=== PATIENT | male | born 1945 | race Caucasian/White ===

== ENCOUNTER 2017-06-19 06:30 | Day surgery (SDC) | payer MEDICARE, BC ==
[2017-06-18 15:45] VITALS: BMI 22.2
--- NOTE | 2017-06-19 06:13 | HP ---
DATE OF ADMISSION: 06/19/2017 HISTORY OF PRESENT ILLNESS: This is a 71-year-old male, who comes for colonoscopy for colon cancer screening. The patient has no specific TI symptoms. Bowel movements are regular. No hematochezia or melena. ALLERGIES: None. SOCIAL HISTORY: The patient does not smoke, but drinks alcohol socially. MEDICAL ILLNESSES: 1. Hypertension. 2. Insomnia. 3. Irritable bowel syndrome. 4. Sleep apnea. . PHYSICAL EXAMINATION: VITAL SIGNS: Pulse is 70, blood pressure 130/70. HEENT: Conjunctivae are clear. CARDIOVASCULAR: First and second heart sounds are normal. LUNGS: Clear to auscultation. ABDOMEN: Soft to palpate. No organomegaly. No tenderness. No masses. EXTREMITIES: Reveal no edema. ADMITTING DIAGNOSIS: A 71-year-old male, who comes for colonoscopy for colon cancer screening. MTDD
[2017-06-19] MEDS ORDERED: Propofol 200 MG/20 ML VIAL ONE (08:41)
[2017-06-19] MEDS ORDERED: Lidocaine 1% PF 5 ML VIAL ONE (08:41)
--- NOTE | 2017-06-19 11:32 | OP ---
DATE OF PROCEDURE: 06/19/2017 SURGEON: Indy Nunn M.D. OPERATIVE PROCEDURE: Colonoscopy. PREOPERATIVE DIAGNOSIS: Colon cancer screening. POSTOPERATIVE DIAGNOSES: 1. Very redundant, tortuous colon. 2. Diffuse diverticular disease to the transverse colon. PROCEDURE IN DETAIL: The patient was placed on his left lateral position and was given sedation by Anesthesia Department. A rectal exam was done before the scope was advanced into the rectum. No le sions were felt on rectal exam. A [employer]ax video colonoscope was introduced into the rectum and advan ian all the way into the cecum. The prep was very good. The mucosa appeared normal throughout the colon with normal vascular pattern. The patient had a very tortuous and redundant colon. Abdominal compression was used to advance all the way into the cecum. The appendiceal opening, ileocecal terrie ve, and cecum, no pathology seen. The ascending colon, hepatic flexure, no pathology seen. The tra nsverse colon, splenic flexure, descending colon, and sigmoid colon showed scattered diverticulosis. Retroflexion of the scope in the rectum showed no hemorrhoids. DISCHARGE PLANNING: This is a 71-year-old male who came in for colonoscopy for colon [facility] er screening. The colonoscopy showed diffuse colonic diverticulosis of the sigmoid colon all the wa y the transverse colon. No other pathology seen. DISCHARGE RECOMMENDATIONS: 1. High-fiber diet. 2. Metamucil. 3. The patient was advised to call me if he develops abdominal pain, hematochezia or fever.
== END 2017-06-19 09:50 | disposition home or self-care (01) ==
LOC: SDC 06:30
PROVIDERS: ATTEND Internal Medicine Gastroenterology
PROC: 0DJD8ZZ Inspection of Lower Intestinal Tract, Via Natural or Artificial Opening Endoscopic (ICD-10-PCS; principal; 2017-06-19)
DX: Z12.11 Encounter for screening for malignant neoplasm of colon (principal); K57.30 Diverticulosis of large intestine without perforation or abscess without bleeding; I10 Essential (primary) hypertension; G47.00 Insomnia, unspecified; G47.30 Sleep apnea, unspecified; E78.5 Hyperlipidemia, unspecified; Z91.011 Allergy to milk products; Z79.899 Other long term (current) drug therapy; Z98.890 Other specified postprocedural states
CPT/HCPCS: J2001; J2704

== ENCOUNTER 2018-02-26 08:51 | Outpatient (CLI) | payer MEDICARE, BC | END 2018-02-26 08:52 | disposition home or self-care (01) | LOC: BICULT 08:51 | PROVIDERS: ATTEND Internal Medicine Nephrology | DX: N18.3 Chronic kidney disease, stage 3 (moderate) (principal); N28.1 Cyst of kidney, acquired | CPT/HCPCS: 76770 ==

== ENCOUNTER 2019-09-26 10:37 | Outpatient (CLI) | payer MEDICARE, BC ==
--- NOTE | 2019-09-26 13:18 | BD ---
DEXA BONE DENSITY STUDY: Date: 09/26/2019 HISTORY: Age-related osteoporosis. FINDINGS: Lumbar Spine: BMD (g/cm2) L1 0.922 T-Score: -1.4 L2 1.025 T-Score: -0.6 L3 1.073 T-Score: -0.3 L4 1.071 T-Score: -0.2 Total 1.028 T-Score: -0.6 Left Femoral Neck: 0.722 T-Score: -1.5 Total Femur: 0.869 T-Score: -1.1 IMPRESSION: Osteopenia of the left femoral neck. Normal bone mineral density of the lumbar spine. The 10 year fracture risk for major osteoporotic fracture is 19% and for a hip fracture is 8.6%. Thes e fracture probabilities are calculated for an untreated patient. POS: [facility]
== END 2019-09-26 10:38 | disposition home or self-care (01) ==
LOC: BICMAMMO 10:37
PROVIDERS: ATTEND Internal Medicine Rheumatology
DX: M81.0 Age-related osteoporosis without current pathological fracture (principal); M85.852 Other specified disorders of bone density and structure, left thigh
CPT/HCPCS: 77080

== ENCOUNTER 2020-12-09 15:18 | Outpatient (CLI) | payer MEDICARE, BC | END 2020-12-09 15:19 | disposition home or self-care (01) | LOC: SCSULT 15:18 | PROVIDERS: ATTEND Internal Medicine Nephrology | DX: R60.0 Localized edema (principal); L40.50 Arthropathic psoriasis, unspecified; M05.79 Rheumatoid arthritis with rheumatoid factor of multiple sites without organ or systems involvement; E29.1 Testicular hypofunction ==

== ENCOUNTER 2021-09-28 13:23 | Outpatient (CLI) | payer MEDICARE, BC | END 2021-09-28 13:24 | disposition home or self-care (01) | LOC: BICMAMMO 13:23 | PROVIDERS: ATTEND Internal Medicine Rheumatology | DX: M81.0 Age-related osteoporosis without current pathological fracture (principal); M85.851 Other specified disorders of bone density and structure, right thigh; M85.852 Other specified disorders of bone density and structure, left thigh | CPT/HCPCS: 77080 ==

== ENCOUNTER 2021-10-02 08:57 | Observation (INO) | payer MEDICARE, BC ==
[2021-10-02 09:46] LABS: #Basophils 0.1 thou/uL (0.0-0.2); #Eosinphils 0.1 thou/uL (0.0-0.7); #Lymphocytes 1.5 thou/uL (1.20-3.40); #Monocytes 1.1 thou/uL (0.11-0.59); #Neutrophils 5.5 thou/uL (1.40-6.50); %Basophils 0.7 % (0.0-1.0); %Eosinophils 0.8 % (0.0-10.0); %Lymphocytes 18.1 % (21.0-51.0); %Monocytes 13.9 % (0.0-10.0); %Neutrophils 66.5 % (42.0-75.0); Hemoglobin 12.8 g/dL (14.0-18.0); Mean Corpuscular HGB CONC 34.1 g/dL (32.0-36.0); Mean Corpuscular Hemoglobin 37.7 pg (27.0-31.0); Mean Platelet Volume 6.3 fL (7.4-10.4); Platelet Count 230 thou/uL (130-400); RBC Distribution Width 13.4 % (11.5-14.5); Red Blood Cell (RBC) Count 3.41 mill/uL (4.70-6.10); White Blood Cell (WBC) Count 8.2 thou/uL (4.8-10.8)
[2021-10-02 09:56] LABS: INR-International Normal Ratio 1.1
[2021-10-02 09:57] LABS: PTT 41.6 sec (22.9-36.1)
[2021-10-02 10:00] LABS: ALT (SGPT) 20 U/L (8-55); AST (SGOT) 29 U/L (5-34); Albumin 3.8 g/dL (3.4-4.8); Alkaline Phosphatase 36 U/L (40-110); Anion Gap 10 mmol/L (10-20); BUN (Urea Nitrogen) 18 mg/dL (8.4-25.7); Bilirubin, Total 0.6 mg/dL (0.2-1.2); Calc. Creatinine Clearance 0 mL/min (70-130); Calcium 9.4 mg/dL (7.8-10.44); Carbon Dioxide 27 mmol/L (23-31); Chloride 102 mmol/L (98-107); Glucose 99 mg/dL (83-110); Potassium 4.5 mmol/L (3.5-5.1); Protein, Total 6.8 g/dL (5.8-8.1); Sodium 134 mmol/L (136-145)
[2021-10-02 10:16] LABS: MDiff Complete? YES; Macrocytosis SLIGHT = 6-15 cells (100X) (0-5/hpf); Platelet Morphology Comment Appears Adequate
[2021-10-02] MEDS ORDERED: hydrALAZINE 20 MG/ML VIAL SLOW IVP PRN (10:59)
[2021-10-02] MEDS ORDERED: Aspirin Chewable 81 MG TAB ONE (11:18)
[2021-10-02] MEDS ORDERED: Acetaminophen 325 MG TAB ONE (11:18)
[2021-10-02 13:14] LABS: Troponin I 0.044 ng/mL (< 0.028)
[2021-10-02 13:53] VITALS: BMI 21.3
[2021-10-02 14:22] LABS: SARS-CoV-2 NAA Rapid Test Not Detected (NotDetected)
[2021-10-02 16:53] LABS: Troponin I 0.043 ng/mL (< 0.028)
[2021-10-02] MEDS ORDERED: CERTOLIZUMAB PEGOL 400 MG SC SCH (18:15)
[2021-10-02] MEDS ORDERED: Non-Formulary Item 1 EACH (Ibandronate Sodium [Ibandronate Sodium] 150 MG Tablet) PO SCH (18:15)
[2021-10-02] MEDS: Folic Acid 1 MG TAB PO SCH (20:32)
[2021-10-02] MEDS: Acetaminophen 325 MG TAB PO SCH (20:32)
[2021-10-02] MEDS ORDERED: traZODone HCl 50 MG TAB PO SCH (21:00)
[2021-10-02] MEDS ORDERED: Atorvastatin Calcium 40 MG TAB PO SCH (21:00)
[2021-10-03 05:43] LABS: #Basophils 0.1 thou/uL (0.0-0.2); #Eosinphils 0.2 thou/uL (0.0-0.7); #Lymphocytes 3.1 thou/uL (1.20-3.40); #Monocytes 1.4 thou/uL (0.11-0.59); %Basophils 0.9 % (0.0-1.0); %Eosinophils 1.6 % (0.0-10.0); %Monocytes 14.1 % (0.0-10.0); %Neutrophils 51.4 % (42.0-75.0); Hemoglobin 12.2 g/dL (14.0-18.0); Mean Corpuscular HGB CONC 33.5 g/dL (32.0-36.0); Mean Corpuscular Hemoglobin 36.9 pg (27.0-31.0); Mean Platelet Volume 6.5 fL (7.4-10.4); Platelet Count 231 thou/uL (130-400); RBC Distribution Width 13.4 % (11.5-14.5); White Blood Cell (WBC) Count 9.8 thou/uL (4.8-10.8)
[2021-10-03 06:06] LABS: Anion Gap 22 mmol/L (10-20); BUN (Urea Nitrogen) 23 mg/dL (8.4-25.7); Calc. Creatinine Clearance 44 mL/min (70-130); Calcium 8.7 mg/dL (7.8-10.44); Carbon Dioxide 13 mmol/L (23-31); Chloride 101 mmol/L (98-107); Cholesterol 113 mg/dl (< 200 Desired); Glucose 93 mg/dL (83-110); HDL Cholesterol 28 mg/dL (>60 Neg Risk); LDL Cholesterol, Calculated 65 mg/dL; Potassium 4.3 mmol/L (3.5-5.1); Sodium 132 mmol/L (136-145); Triglycerides 100 mg/dL (Less than 150)
[2021-10-03] MEDS ORDERED: Ferrous Sulfate 325 MG TAB PO SCH (08:00)
[2021-10-03] MEDS ORDERED: predniSONE 1 MG TAB PO SCH (08:00)
[2021-10-03] MEDS: Folic Acid 1 MG TAB PO SCH (08:29)
[2021-10-03] MEDS: Acetaminophen 325 MG TAB PO SCH (08:29)
[2021-10-03] MEDS ORDERED: BOSWELLIA SERRA PO SCH (09:00)
[2021-10-03] MEDS ORDERED: Calcium Carbonate 600 MG + Vit D TAB PO SCH (09:00)
[2021-10-03] MEDS ORDERED: GLUCOSAMINE PO SCH (09:00)
[2021-10-03] MEDS ORDERED: Losartan 25 MG TAB PO SCH (09:00)
[2021-10-03] MEDS ORDERED: D3 PO SCH (09:00)
[2021-10-03] MEDS ORDERED: Aspirin 81 mg Enteric Coated Tablet PO SCH (09:00)
[2021-10-03] MEDS ORDERED: Loratadine 10 MG TAB PO SCH (09:00)
[2021-10-03] MEDS ORDERED: [UNRECOGNIZED DRUG - OTHER] PO SCH (09:00)
[2021-10-03 11:33] VITALS: BP 102/55; TEMP 98.2
[2021-10-03] MEDS ORDERED: Mometasone Furoate 30 PUFF 220 MCG INH SCH (18:30)
[2021-10-05 12:57] LABS: CCP IgG Antibody 1.4 EliAU/mL (<7 Negative); EliA RAS New Method **** NEW METHOD ****; Rheumatoid Factor IgA Antibody 2.3 IU/mL (<14 Negative)
[2021-10-09] MEDS ORDERED: METHOTREXATE SODIUM 25 MG/ML FS SCH (09:00)
== END 2021-10-03 14:00 | disposition home or self-care (01) ==
LOC: ERS 08:57 → NEURO 11:08
PROVIDERS: ADMIT Hospitalist; ATTEND Hospitalist
DX: G45.9 Transient cerebral ischemic attack, unspecified (principal); M06.9 Rheumatoid arthritis, unspecified; L40.50 Arthropathic psoriasis, unspecified; I11.9 Hypertensive heart disease without heart failure; I08.3 Combined rheumatic disorders of mitral, aortic and tricuspid valves; Z79.82 Long term (current) use of aspirin; Z79.83 Long term (current) use of bisphosphonates; Z79.899 Other long term (current) drug therapy; Z91.011 Allergy to milk products; Z20.822 Contact with and (suspected) exposure to COVID-19; W06.XXXA Fall from bed, initial encounter
CPT/HCPCS: 70450; 70551; 80048; 80053; 80061; 82553; 82962; 83520; 84484 ×2; 85025 ×2; 85610; 85730; 86200; 93005; 93306; 93880; 97139 ×3; 97535; 99285; U0002; 36415; 36416; G0378; J7512

== ENCOUNTER 2022-08-06 19:00 | Outpatient (CLI) | payer MEDICARE, BC | END 2022-08-06 19:01 | disposition home or self-care (01) | LOC: SLEEPLAB 19:00 | PROVIDERS: ATTEND Psychiatry & Neurology Neurology | DX: G47.33 Obstructive sleep apnea (adult) (pediatric) (principal); G31.84 Mild cognitive impairment of uncertain or unknown etiology; R06.83 Snoring; G47.10 Hypersomnia, unspecified; G47.00 Insomnia, unspecified | CPT/HCPCS: 95810 ==

== ENCOUNTER 2022-11-13 05:57 | Inpatient (IN) | payer MEDICARE, BC ==
[2022-11-13 06:51] LABS: ALT (SGPT) 22 U/L (8-55); AST (SGOT) 38 U/L (5-34); Alkaline Phosphatase 35 U/L (40-110); Anion Gap 11 mmol/L (10-20); BUN (Urea Nitrogen) 20 mg/dL (8.4-25.7); Bilirubin, Total 0.8 mg/dL (0.2-1.2); Calc. Creatinine Clearance 0 mL/min (70-130); Calcium 9.1 mg/dL (7.8-10.44); Carbon Dioxide 22 mmol/L (23-31); Chloride 108 mmol/L (98-107); Estimated GFR 50; Globulin 2.6 g/dL (2.4-3.5); Glucose 89 mg/dL (83-110); Potassium 3.9 mmol/L (3.5-5.1); Protein, Total 6.6 g/dL (5.8-8.1); Sodium 137 mmol/L (136-145)
[2022-11-13 07:07] LABS: Hemoglobin 13.7 g/dL (14.0-18.0); Mean Corpuscular HGB CONC 32.8 g/dL (32.0-36.0); Mean Corpuscular Hemoglobin 35.6 pg (27.0-31.0); Mean Platelet Volume 7.6 fL (7.4-10.4); Platelet Count 153 10x3/uL (130-400); RBC Distribution Width 14.1 % (11.5-14.5); Red Blood Cell (RBC) Count 3.85 mill/uL (4.70-6.10); White Blood Cell (WBC) Count 6.8 10x3/uL (4.8-10.8)
[2022-11-13 07:14] LABS: CKMB 4.9 ng/mL (0-6.6)
[2022-11-13 07:22] LABS: #Basophils 0.1 thou/uL (0.0-0.2); #Eosinphils 0.3 thou/uL (0.0-0.7); #Lymphocytes 1.3 thou/uL (1.20-3.40); #Monocytes 0.8 thou/uL (0.11-0.59); #Neutrophils 4.3 thou/uL (1.40-6.50); %Basophils 0.7 % (0.0-1.0); %Eosinophils 4.4 % (0.0-10.0); %Lymphocytes 19.1 % (21.0-51.0); %Monocytes 12.3 % (0.0-10.0); %Neutrophils 63.5 % (42.0-75.0)
[2022-11-13 07:40] LABS: MDiff Complete? YES; Macrocytosis MODERATE=16-30 cells (100X) (0-5/hpf); Platelet Morphology Comment Appears Adequate; Polychromasia SLIGHT = 2-3 cells (100X) (0-2/hpf)
[2022-11-13 07:43] LABS: Prothrombin Time 13.5 sec (12.0-14.7)
[2022-11-13 07:44] LABS: PTT 33.9 sec (22.9-36.1)
[2022-11-13] MEDS ORDERED: hydrALAZINE 20 MG/ML VIAL ONE (07:47)
[2022-11-13] MEDS ORDERED: Non-Formulary Item 1 EACH (Iron [Iron] 18 MG Tablet) PO SCH (09:00)
[2022-11-13 09:14] LABS: SARS-CoV-2 NAA Rapid Test Not Detected (NotDetected)
[2022-11-13 09:37] VITALS: BMI 22.8
[2022-11-13] MEDS ORDERED: Acetaminophen 325 MG TAB PO PRN (09:42)
[2022-11-13] MEDS ORDERED: Bisacodyl 5 MG TAB PO PRN (09:42)
[2022-11-13] MEDS: Losartan 25 MG TAB PO SCH (10:08)
[2022-11-13] MEDS: Calcium Carbonate 600 MG + Vit D TAB PO SCH (10:08)
[2022-11-13] MEDS: hydrALAZINE 20 MG/ML VIAL SLOW IVP PRN ×2 (10:08→18:09)
[2022-11-13] MEDS: Folic Acid 1 MG TAB PO SCH ×2 (10:09→20:52)
[2022-11-13] MEDS: Fluticasone Propionate Nasal Spray 16 gm Bottle NASAL SCH (10:15)
[2022-11-13] MEDS ORDERED: niCARdipine 25 MG in Sodium Chloride 0.9% 250 ML 250 ML IVPB PRN (17:45)
[2022-11-13] MEDS ORDERED: Ondansetron PF 4 MG/2 ML Vial IVP PRN (19:22)
[2022-11-13] MEDS ORDERED: Morphine 2 MG/ML VIAL SLOW IVP PRN (19:22)
[2022-11-13] MEDS: Famotidine/PF 20 mg/2ml Vial SLOW IVP SCH (20:52)
[2022-11-14] MEDS: Acetaminophen/Codeine 30-300mg Tablet PO PRN ×2 (00:09→04:10)
[2022-11-14 05:24] LABS: Hemoglobin 14.4 g/dL (14.0-18.0); Mean Corpuscular HGB CONC 32.2 g/dL (32.0-36.0); Mean Corpuscular Hemoglobin 35.2 pg (27.0-31.0); Mean Platelet Volume 7.2 fL (7.4-10.4); Platelet Count 176 10x3/uL (130-400); RBC Distribution Width 14.2 % (11.5-14.5); White Blood Cell (WBC) Count 8.9 10x3/uL (4.8-10.8)
[2022-11-14 05:29] LABS: Anion Gap 15 mmol/L (10-20); BUN (Urea Nitrogen) 19 mg/dL (8.4-25.7); Calc. Creatinine Clearance 42 mL/min (70-130); Calcium 8.9 mg/dL (7.8-10.44); Carbon Dioxide 19 mmol/L (23-31); Chloride 105 mmol/L (98-107); Estimated GFR 49; Glucose 73 mg/dL (83-110); Potassium 4.7 mmol/L (3.5-5.1); Sodium 134 mmol/L (136-145)
[2022-11-14 06:13] LABS: #Eosinphils 0.1 thou/uL (0.0-0.7); #Lymphocytes 1.5 thou/uL (1.20-3.40); #Monocytes 1.3 thou/uL (0.11-0.59); %Eosinophils 1.4 % (0.0-10.0); %Lymphocytes 17.1 % (21.0-51.0); %Monocytes 14.2 % (0.0-10.0); %Neutrophils 67.3 % (42.0-75.0); MDiff Complete? YES; Macrocytosis SLIGHT = 6-15 cells (100X) (0-5/hpf)
[2022-11-14] MEDS: Losartan 25 MG TAB PO SCH (08:33)
[2022-11-14] MEDS: Famotidine/PF 20 mg/2ml Vial SLOW IVP SCH (08:33)
[2022-11-14] MEDS: Folic Acid 1 MG TAB PO SCH (09:34)
[2022-11-14] MEDS: Calcium Carbonate 600 MG + Vit D TAB PO SCH (09:34)
[2022-11-14] MEDS: Fluticasone Propionate Nasal Spray 16 gm Bottle NASAL SCH (09:35)
[2022-11-14 13:14] VITALS: BP 124/72; TEMP 98.2
== END 2022-11-14 13:00 | disposition home or self-care (01) | DRG 66 ==
LOC: ERS 05:57 → CCU 08:06
PROVIDERS: ADMIT Surgery; ATTEND Surgery
DX: I61.8 Other nontraumatic intracerebral hemorrhage (principal); M06.9 Rheumatoid arthritis, unspecified; L40.50 Arthropathic psoriasis, unspecified; I12.9 Hypertensive chronic kidney disease with stage 1 through stage 4 chronic kidney disease, or unspecified chronic kidney disease; R47.1 Dysarthria and anarthria; N18.30 Chronic kidney disease, stage 3 unspecified; Z86.73 Personal history of transient ischemic attack (TIA), and cerebral infarction without residual deficits; Z82.49 Family history of ischemic heart disease and other diseases of the circulatory system; Z98.890 Other specified postprocedural states; Z79.899 Other long term (current) drug therapy; Z79.82 Long term (current) use of aspirin; Z91.018 Allergy to other foods; Z90.89 Acquired absence of other organs; Z20.822 Contact with and (suspected) exposure to COVID-19
CPT/HCPCS: 36415; 70450; 80048; 80053; 82553; 84484; 85025; 85610; 85730; 93005; 96374; 99292; J0360; J2405; S0028; U0002

== ENCOUNTER 2022-11-15 02:48 | Emergency (ER) | payer MEDICARE, BC ==
[2022-11-15 03:56] LABS: Hemoglobin 13.5 g/dL (14.0-18.0); Mean Corpuscular Hemoglobin 36.7 pg (27.0-31.0); Mean Platelet Volume 7.4 fL (7.4-10.4); Platelet Count 160 10x3/uL (130-400); Red Blood Cell (RBC) Count 3.68 mill/uL (4.70-6.10)
[2022-11-15 04:00] LABS: ALT (SGPT) 20 U/L (8-55); AST (SGOT) 34 U/L (5-34); Albumin 3.5 g/dL (3.4-4.8); Alkaline Phosphatase 36 U/L (40-110); Anion Gap 10 mmol/L (10-20); BUN (Urea Nitrogen) 26 mg/dL (8.4-25.7); Bilirubin, Total 1.2 mg/dL (0.2-1.2); Calc. Creatinine Clearance 0 mL/min (70-130); Calcium 8.8 mg/dL (7.8-10.44); Carbon Dioxide 26 mmol/L (23-31); Chloride 103 mmol/L (98-107); Estimated GFR 41; Globulin 2.8 g/dL (2.4-3.5); Glucose 99 mg/dL (83-110); Potassium 4.1 mmol/L (3.5-5.1); Protein, Total 6.3 g/dL (5.8-8.1); Sodium 135 mmol/L (136-145)
[2022-11-15 04:01] LABS: INR-International Normal Ratio 1.1; PTT 34.9 sec (22.9-36.1); Prothrombin Time 14.2 sec (12.0-14.7)
[2022-11-15 04:18] LABS: MDiff Complete? YES
[2022-11-15 04:19] LABS: Band 1 % (5-11); Eosinophils 1 % (0-10); Lymphocytes 20 % (21-51); Monocytes 12 % (0-10); Neutrophil 66 % (42-75); Platelet Morphology Comment Appears Adequate; Polychromasia SLIGHT = 2-3 cells (100X) (0-2/hpf); Stomatocytes SLIGHT = 2-5 cells (100X) (0-1/hpf)
== END 2022-11-15 11:56 ==
LOC: ERS 02:48
DX: R53.1 Weakness (principal)
CPT/HCPCS: 36415; 36416; 70450; 80053; 85025; 85610; 85730

== ENCOUNTER 2022-12-06 11:58 | Outpatient (CLI) | payer MEDICARE, BC | END 2022-12-06 11:59 | disposition home or self-care (01) | LOC: BICCT 11:58 | PROVIDERS: ATTEND Surgery | DX: I62.9 Nontraumatic intracranial hemorrhage, unspecified (principal) | CPT/HCPCS: 70450 ==

== ENCOUNTER 2023-06-05 11:29 | Outpatient (CLI) | payer MEDICARE, BC | END 2023-06-05 11:30 | disposition home or self-care (01) | LOC: BICRAD 11:29 | PROVIDERS: ATTEND Family Medicine | DX: M79.18 Myalgia, other site (principal); M16.0 Bilateral primary osteoarthritis of hip; M46.1 Sacroiliitis, not elsewhere classified; M47.816 Spondylosis without myelopathy or radiculopathy, lumbar region; M47.817 Spondylosis without myelopathy or radiculopathy, lumbosacral region | CPT/HCPCS: 72100; 72170 ==

== ENCOUNTER 2023-06-14 10:01 | Outpatient (CLI) | payer MEDICARE, BC | END 2023-06-14 10:02 | disposition home or self-care (01) | LOC: SCSMRI 10:01 | PROVIDERS: ATTEND Family Medicine | DX: M51.16 Intervertebral disc disorders with radiculopathy, lumbar region (principal); M47.26 Other spondylosis with radiculopathy, lumbar region; M47.817 Spondylosis without myelopathy or radiculopathy, lumbosacral region; M79.604 Pain in right leg; M79.605 Pain in left leg | CPT/HCPCS: 72148 ==

== ENCOUNTER 2023-06-29 10:21 | Outpatient (CLI) | payer MEDICARE, BC | END 2023-06-29 10:22 | disposition home or self-care (01) | LOC: BICMRI 10:21 | PROVIDERS: ATTEND Specialist | DX: S76.311A Strain of muscle, fascia and tendon of the posterior muscle group at thigh level, right thigh, initial encounter (principal); R93.7 Abnormal findings on diagnostic imaging of other parts of musculoskeletal system | CPT/HCPCS: 72195 ==

== ENCOUNTER 2023-10-15 09:20 | Outpatient (CLI) | payer MEDICARE | END 2023-10-15 09:21 | disposition home or self-care (01) | LOC: BICMAMMO 09:20 | PROVIDERS: ATTEND Internal Medicine Rheumatology | DX: M81.0 Age-related osteoporosis without current pathological fracture (principal); M85.851 Other specified disorders of bone density and structure, right thigh; M85.852 Other specified disorders of bone density and structure, left thigh | CPT/HCPCS: 77080 ==

== ENCOUNTER 2023-10-16 08:30 | Inpatient (IN) | payer MEDICARE ==
[2023-10-16 10:05] LABS: Anion Gap 11 mmol/L (10-20); BUN (Urea Nitrogen) 23 mg/dL (8.4-25.7); Calc. Creatinine Clearance 0 mL/min (70-130); Calcium 9.4 mg/dL (7.8-10.44); Carbon Dioxide 26 mmol/L (23-31); Chloride 106 mmol/L (98-107); Estimated GFR 45; Glucose 56 mg/dL (83-110); Potassium 4.4 mmol/L (3.5-5.1); Sodium 139 mmol/L (136-145)
[2023-10-16 10:06] LABS: Hematocrit 36.8 % (38.8-50.0); Hemoglobin 12.5 g/dL (13.5-17.5); Mean Corpuscular Hemoglobin 34.1 pg (27.0-33.0); Mean Corpuscular Volume 100.3 fl (81.2-95.1); Mean Platelet Volume 9.4 fl (7.4-10.4); Platelet Count 201 10x3/uL (150-450); RBC Distribution Width 15.9 % (11.5-14.5); Red Blood Cell (RBC) Count 3.67 10x6/uL (4.32-5.72); White Blood Cell (WBC) Count 7.1 10x3/uL (3.5-10.5)
[2023-10-17] MEDS ORDERED: Dexamethasone 4 mg/ml Vial ONE (06:14)
[2023-10-17] MEDS ORDERED: EPINEPHrine 1 MG/ML VIAL ONE (06:14)
[2023-10-17] MEDS ORDERED: Bupivacaine PF 0.5% 30 ML VIAL ONE (06:14)
[2023-10-17] MEDS ORDERED: Albumin 5% 500 ML ONE (06:14)
[2023-10-17] MEDS ORDERED: Heparin 10,000 UNITS/1 ML VIAL 30,000 UNITS in Sodium Chloride 0.9% 1,000 ML FS SCH (06:45)
[2023-10-17] MEDS ORDERED: PROPOFOL 20 ML ONE (06:51)
[2023-10-17] MEDS ORDERED: PHENYLEPHRINE-NS 100 MCG/ML 10 ML SYRINGE ONE (06:51)
[2023-10-17] MEDS ORDERED: Lidocaine 2% PF 5 ML VIAL ONE (06:51)
[2023-10-17] MEDS ORDERED: fentaNYL PF 100 MCG/2 ML SYRINGE ONE (06:51)
[2023-10-17] MEDS ORDERED: Vecuronium 10 MG VIAL ONE (06:51)
[2023-10-17] MEDS ORDERED: Midazolam HCl 2 mg/2 ml Vial ONE (06:54)
[2023-10-17] MEDS ORDERED: Lidocaine 1% MPF 2 ML VIAL ONE (07:01)
[2023-10-17] MEDS ORDERED: CEFAZOLIN 2 GM VIAL ONE (07:02)
[2023-10-17] MEDS ORDERED: Sodium Chloride 0.9% 100 ML ONE (07:27)
[2023-10-17] MEDS ORDERED: NEOSTIGMINE 3 MG/3 ML SYR 3 MG/3 ML SYRINGE ONE (10:12)
[2023-10-17] MEDS ORDERED: Glycopyrrolate 0.2 MG/ML 5 ML SYRINGE ONE (10:12)
[2023-10-17] MEDS ORDERED: Acetaminophen 325 MG TAB PO PRN (10:45)
[2023-10-17] MEDS ORDERED: Bisacodyl 5 MG TAB PO PRN (10:45)
[2023-10-17] MEDS ORDERED: Hetastarch 6% 500 ML 500 ML IVPB PRN (10:45)
[2023-10-17] MEDS ORDERED: Promethazine HCl 25 MG/ML VIAL IM PRN (10:45)
[2023-10-17] MEDS ORDERED: Mag-Al 1200 mg/1200 mg/30 ML UDCUP PO PRN (10:45)
[2023-10-17] MEDS ORDERED: Ipratropium/Albuterol 3 ML NEB NEB PRN (10:45)
[2023-10-17] MEDS ORDERED: Potassium Chloride 20 MEQ (100 mL) BAG IVPB PRN (10:45)
[2023-10-17] MEDS ORDERED: Guaifenesin DM 100-10/5 ML UDCUP PO PRN (10:45)
[2023-10-17] MEDS ORDERED: fentaNYL 50 mcg/mL 1 mL Vial SLOW IVP PRN (10:45)
[2023-10-17] MEDS ORDERED: Ondansetron PF 4 MG/2 ML Vial IVP PRN (10:45)
[2023-10-17] MEDS ORDERED: Albumin 5% 12.5 GM (250 mL) BOT IVPB PRN (10:45)
[2023-10-17] MEDS ORDERED: NOREPINEPHRINE 8 MG/250 ML-D5W 250 ML IVPB PRN (10:45)
[2023-10-17] MEDS ORDERED: Morphine 2 MG/ML VIAL SLOW IVP PRN (10:45)
[2023-10-17] MEDS ORDERED: Nitroglycerin 50 MG/250 ML BOT 250 ML IVPB PRN (10:45)
[2023-10-17] MEDS ORDERED: Bisacodyl 10 MG SUPP PR PRN (10:45)
[2023-10-17] MEDS ORDERED: hydrALAZINE 20 MG/ML VIAL SLOW IVP PRN (10:45)
[2023-10-17] MEDS ORDERED: traMADol HCl 50 MG TAB PO PRN (10:45)
[2023-10-17] MEDS ORDERED: Insulin Regular 300 UNITS/3 ML VIAL SC PRN (11:00)
[2023-10-17] MEDS ORDERED: Dextrose 50% Abboject 50 ML SYRINGE SLOW IVP PRN (11:00)
[2023-10-17] MEDS ORDERED: Dextrose 5% in Water 1,000 ML IV PRN (11:00)
[2023-10-17] MEDS ORDERED: Glucagon 1 MG/ML KIT SC PRN (11:00)
[2023-10-17] MEDS ORDERED: HUMULIN R 100 UNITS in Sodium Chloride 0.9% 100 ML IVPB SCH (11:00)
[2023-10-17 11:15] LABS: #Eosinphils 0.3 thou/uL (0.0-0.7); #Monocytes 0.4 thou/uL (0.11-0.59); #Neutrophils 20.2 thou/uL (1.40-6.50); %Basophils 0.1 % (0.0-1.0); %Eosinophils 1.2 % (0.0-10.0); %Monocytes 1.6 % (0.0-10.0); %Neutrophils 86.6 % (42.0-75.0); Hematocrit 32.5 % (42.0-52.0); Hemoglobin 10.6 g/dL (14.0-18.0); Mean Corpuscular HGB CONC 32.6 g/dL (32.0-36.0); Mean Corpuscular Hemoglobin 33.4 pg (27.0-31.0); Mean Corpuscular Volume 102.5 fl (78.0-98.0); Mean Platelet Volume 9.7 fL (7.4-10.4); Platelet Count 156 10x3/uL (130-400); RBC Distribution Width 15.8 % (11.5-14.5); Red Blood Cell (RBC) Count 3.17 mill/uL (4.70-6.10); White Blood Cell (WBC) Count 23.3 10x3/uL (4.8-10.8)
[2023-10-17] MEDS: Post-Op Insulin Drip Protocol IVPB ONE (11:17)
[2023-10-17] MEDS: Magnesium 2 GM/50 ML(in water) 2 GM in Premix 1 BAG IVPB SCH (11:17)
[2023-10-17] MEDS: Ketorolac Tromethamine 30 MG (1 mL) VIAL IVP SCH (11:17)
[2023-10-17] MEDS: D5 1/2 NS w/20 mEq KCL 1,000 ML IV SCH (11:17)
[2023-10-17 11:31] LABS: INR-International Normal Ratio 1.4; Prothrombin Time 16.8 sec (12.0-14.7)
[2023-10-17 11:33] LABS: Anion Gap 14 mmol/L (10-20); BUN (Urea Nitrogen) 27 mg/dL (8.4-25.7); Calc. Creatinine Clearance 42 mL/min (70-130); Calcium 8.3 mg/dL (7.8-10.44); Carbon Dioxide 19 mmol/L (23-31); Chloride 111 mmol/L (98-107); Estimated GFR 51; Glucose 157 mg/dL (83-110); Potassium 4.8 mmol/L (3.5-5.1); Sodium 139 mmol/L (136-145)
[2023-10-17 11:52] VITALS: BMI 21.4
[2023-10-17] MEDS: Albumin 5% 12.5 GM (250 mL) BOT IVPB PRN (13:36)
[2023-10-17] MEDS: CEFAZOLIN 2 GM in Sodium Chloride 0.9% 100 ML IVPB SCH (14:20)
[2023-10-17] MEDS: fentaNYL 50 mcg/mL 1 mL Vial SLOW IVP PRN (16:18)
[2023-10-17 17:14] LABS: Hematocrit 29.2 % (42.0-52.0); Hemoglobin 9.5 g/dL (14.0-18.0)
[2023-10-17 17:23] LABS: Potassium 4.6 mmol/L (3.5-5.1)
[2023-10-17] MEDS: Rosuvastatin 20 MG TAB PO SCH (19:30)
[2023-10-17] MEDS: Famotidine/PF 20 mg/2ml Vial SLOW IVP SCH (19:30)
[2023-10-18 05:25] LABS: #Monocytes 1.2 thou/uL (0.11-0.59); #Neutrophils 13.4 thou/uL (1.40-6.50); %Basophils 0.1 % (0.0-1.0); %Lymphocytes 3.8 % (21.0-51.0); %Neutrophils 87.8 % (42.0-75.0); Hematocrit 24.5 % (42.0-52.0); Hemoglobin 8.1 g/dL (14.0-18.0); Mean Corpuscular HGB CONC 33.1 g/dL (32.0-36.0); Mean Corpuscular Volume 102.9 fl (78.0-98.0); Platelet Count 159 10x3/uL (130-400); RBC Distribution Width 15.9 % (11.5-14.5); Red Blood Cell (RBC) Count 2.38 mill/uL (4.70-6.10); White Blood Cell (WBC) Count 15.3 10x3/uL (4.8-10.8)
[2023-10-18 05:50] LABS: Anion Gap 15 mmol/L (10-20); BUN (Urea Nitrogen) 31 mg/dL (8.4-25.7); Calc. Creatinine Clearance 37 mL/min (70-130); Calcium 8.2 mg/dL (7.8-10.44); Carbon Dioxide 18 mmol/L (23-31); Chloride 109 mmol/L (98-107); Estimated GFR 46; Glucose 126 mg/dL (83-110); Potassium 5.2 mmol/L (3.5-5.1); Sodium 137 mmol/L (136-145)
[2023-10-18] MEDS: Magnesium 2 GM/50 ML(in water) 2 GM in Premix 1 BAG IVPB SCH (08:20)
[2023-10-18] MEDS: Aspirin 325 MG TAB PO SCH (08:20)
[2023-10-18] MEDS: traMADol HCl 50 MG TAB PO PRN (08:23)
[2023-10-18] MEDS ORDERED: Insulin Glargine 30 UNITS/0.3 ML VIAL SC PRN (10:55)
[2023-10-18] MEDS: Furosemide 20 MG (2 mL) VIAL SLOW IVP SCH (17:21)
[2023-10-18] MEDS: traZODone HCl 50 MG TAB PO SCH (20:19)
[2023-10-19 03:50] LABS: #Neutrophils 9.9 thou/uL (1.40-6.50); %Basophils 0.1 % (0.0-1.0); %Eosinophils 0.2 % (0.0-10.0); %Lymphocytes 10.7 % (21.0-51.0); %Monocytes 8.4 % (0.0-10.0); %Neutrophils 80.2 % (42.0-75.0); Hematocrit 20.5 % (42.0-52.0); Hemoglobin 6.8 g/dL (14.0-18.0); Mean Corpuscular HGB CONC 33.2 g/dL (32.0-36.0); Mean Corpuscular Volume 102.5 fl (78.0-98.0); Mean Platelet Volume 9.7 fL (7.4-10.4); Platelet Count 141 10x3/uL (130-400); RBC Distribution Width 16.3 % (11.5-14.5); White Blood Cell (WBC) Count 12.4 10x3/uL (4.8-10.8)
[2023-10-19 04:25] LABS: Anion Gap 12 mmol/L (10-20); BUN (Urea Nitrogen) 44 mg/dL (8.4-25.7); Calc. Creatinine Clearance 32 mL/min (70-130); Calcium 7.7 mg/dL (7.8-10.44); Carbon Dioxide 21 mmol/L (23-31); Chloride 105 mmol/L (98-107); Estimated GFR 39; Glucose 102 mg/dL (83-110); Potassium 4.5 mmol/L (3.5-5.1); Sodium 133 mmol/L (136-145)
[2023-10-19] MEDS: Furosemide 20 MG TAB PO SCH (08:37)
[2023-10-19 15:52] VITALS: BP 115/70
[2023-10-19 16:14] VITALS: TEMP 98
== END 2023-10-19 16:32 | disposition home or self-care (01) | DRG 236 ==
LOC: SURG A 10-17 05:51 → EDSTATUS 10-17 08:30 → CCU 10-17 10:28
PROVIDERS: ADMIT Thoracic Surgery (Cardiothoracic Vascular Surgery); ATTEND Thoracic Surgery (Cardiothoracic Vascular Surgery)
PROC: 02100Z9 Bypass Coronary Artery, One Artery from Left Internal Mammary, Open Approach (ICD-10-PCS; principal; 2023-10-17)
PROC: 021009W Bypass Coronary Artery, One Artery from Aorta with Autologous Venous Tissue, Open Approach (ICD-10-PCS; 2023-10-17)
PROC: 06BQ4ZZ Excision of Left Saphenous Vein, Percutaneous Endoscopic Approach (ICD-10-PCS; 2023-10-17)
PROC: 02L70CK Occlusion of Left Atrial Appendage with Extraluminal Device, Open Approach (ICD-10-PCS; 2023-10-17)
PROC: 5A1221Z Performance of Cardiac Output, Continuous (ICD-10-PCS; 2023-10-17)
PROC: 3E033XZ Introduction of Vasopressor into Peripheral Vein, Percutaneous Approach (ICD-10-PCS; 2023-10-17)
PROC: 30233J1 Transfusion of Nonautologous Serum Albumin into Peripheral Vein, Percutaneous Approach (ICD-10-PCS; 2023-10-17)
PROC: 30233N1 Transfusion of Nonautologous Red Blood Cells into Peripheral Vein, Percutaneous Approach (ICD-10-PCS; 2023-10-19)
DX: I25.10 Atherosclerotic heart disease of native coronary artery without angina pectoris (principal); Z79.899 Other long term (current) drug therapy; N18.32 Chronic kidney disease, stage 3b; I12.9 Hypertensive chronic kidney disease with stage 1 through stage 4 chronic kidney disease, or unspecified chronic kidney disease; F32.A Depression, unspecified; M81.0 Age-related osteoporosis without current pathological fracture; Z98.890 Other specified postprocedural states; Z83.3 Family history of diabetes mellitus; Z82.49 Family history of ischemic heart disease and other diseases of the circulatory system; M06.9 Rheumatoid arthritis, unspecified; D63.1 Anemia in chronic kidney disease; E78.5 Hyperlipidemia, unspecified
CPT/HCPCS: 36415; 36416; 36430; 71045; 80048; 85025; 85027; 85610; 85730; 86850; 86900; 86901; 93005; 93010; 93798; A4311; A4648; C1751; J0171; J0665; J1100; J1642; J1885; J1940; J2001; J2250; J2704; J3010; J3475; J3480; J3490; P9016; P9045; S0028

== ENCOUNTER 2023-10-16 08:35 | Outpatient (CLI) | payer MEDICARE | END 2023-10-16 08:36 | disposition home or self-care (01) | LOC: LABBT 08:35 | PROVIDERS: ATTEND Thoracic Surgery (Cardiothoracic Vascular Surgery) | DX: Z01.818 Encounter for other preprocedural examination (principal); I25.10 Atherosclerotic heart disease of native coronary artery without angina pectoris | CPT/HCPCS: 71046; 93005; 93010 ==

== ENCOUNTER 2023-10-30 14:39 | Emergency (ER) | payer BC, MEDICARE ==
[~2023-10-30 14:39] MED LIST: ISOVUE-370 76% MDV (1 ML CHARGE) ONE
[2023-10-30 15:29] LABS: #Eosinphils 0.2 thou/uL (0.0-0.7); #Monocytes 0.3 thou/uL (0.11-0.59); #Neutrophils 5.4 thou/uL (1.40-6.50); %Basophils 0.4 % (0.0-1.0); %Eosinophils 2.5 % (0.0-10.0); %Lymphocytes 13.9 % (21.0-51.0); %Monocytes 3.7 % (0.0-10.0); %Neutrophils 79.4 % (42.0-75.0); Hematocrit 30.2 % (42.0-52.0); Hemoglobin 10.2 g/dL (14.0-18.0); Mean Corpuscular HGB CONC 33.8 g/dL (32.0-36.0); Mean Corpuscular Hemoglobin 33.4 pg (27.0-31.0); Mean Platelet Volume 9.1 fL (7.4-10.4); Platelet Count 428 10x3/uL (130-400); RBC Distribution Width 15.9 % (11.5-14.5); Red Blood Cell (RBC) Count 3.05 mill/uL (4.70-6.10); White Blood Cell (WBC) Count 6.8 10x3/uL (4.8-10.8)
[2023-10-30 15:42] LABS: INR-International Normal Ratio 1.2; PTT 43.8 sec (22.9-36.1); Prothrombin Time 14.9 sec (12.0-14.7)
[2023-10-30 15:47] LABS: ALT (SGPT) 43 U/L (8-55); AST (SGOT) 51 U/L (5-34); Albumin 3.6 g/dL (3.4-4.8); Alkaline Phosphatase 68 U/L (40-110); Anion Gap 14 mmol/L (10-20); BUN (Urea Nitrogen) 30 mg/dL (8.4-25.7); Bilirubin, Total 0.8 mg/dL (0.2-1.2); Calc. Creatinine Clearance 0 mL/min (70-130); Calcium 9.8 mg/dL (7.8-10.44); Carbon Dioxide 22 mmol/L (23-31); Chloride 105 mmol/L (98-107); Estimated GFR 34; Glucose 122 mg/dL (83-110); Potassium 4.9 mmol/L (3.5-5.1); Protein, Total 7.6 g/dL (5.8-8.1); Sodium 136 mmol/L (136-145)
[2023-10-30 15:55] LABS: Critical Call Chem Troponin I NUR.KBR @1555; Troponin I 0.283 ng/mL (< 0.028)
== END 2023-10-30 18:35 | disposition home or self-care (01) ==
LOC: ERS 14:39
DX: J90 Pleural effusion, not elsewhere classified (principal); R53.83 Other fatigue; I45.81 Long QT syndrome; N18.30 Chronic kidney disease, stage 3 unspecified
CPT/HCPCS: 71045; 71275; 80053; 83880; 84484; 85025; 85610; 85730; 93005; 93970

== ENCOUNTER 2024-06-07 19:51 | Emergency (ER) | payer BC, MEDICARE ==
[2024-06-07 20:23] LABS: #Basophils 0.03 10x3/uL (0.0-0.2); %Basophils 0.3 % (0.0-1.0); %Eosinophils 5.7 % (0.0-10.0); %Lymphocytes 8.1 % (21.0-51.0); %Monocytes 6.5 % (0.0-10.0); Hematocrit 35.3 % (42.0-52.0); Hemoglobin 11.6 g/dL (14.0-18.0); Mean Corpuscular HGB CONC 32.9 g/dL (32.0-36.0); Mean Corpuscular Hemoglobin 36.4 pg (27.0-31.0); Mean Corpuscular Volume 110.7 fL (78.0-98.0); Mean Platelet Volume 8.9 fL (7.4-10.4); Platelet Count 128 10x3/uL (130-400); RBC Distribution Width 17.5 % (11.5-14.5); Red Blood Cell (RBC) Count 3.19 mill/uL (4.70-6.10)
[2024-06-07 20:38] LABS: ALT (SGPT) 21 U/L (8-55); AST (SGOT) 27 U/L (5-34); Albumin 3.4 g/dL (3.4-4.8); Alkaline Phosphatase 38 U/L (40-110); Anion Gap 12 mmol/L (10-20); BUN (Urea Nitrogen) 23 mg/dL (8.4-25.7); Bilirubin, Total 0.7 mg/dL (0.2-1.2); Calc. Creatinine Clearance 0 mL/min (70-130); Calcium 8.6 mg/dL (7.8-10.44); Carbon Dioxide 26 mmol/L (23-31); Chloride 104 mmol/L (98-107); Estimated GFR 40; Globulin 2.7 g/dL (2.4-3.5); Glucose 119 mg/dL (83-110); Potassium 3.9 mmol/L (3.5-5.1); Protein, Total 6.1 g/dL (5.8-8.1); Sodium 138 mmol/L (136-145)
[2024-06-07 20:41] LABS: Microcytosis SLIGHT = 6-15 cells HPF (0-5); Platelet Adequacy Comment Platelets Decreased; Polychromasia SLIGHT = 2-3 cells HPF (0-2); Tear Drops SLIGHT = 2-5 cells HPF (0-1)
[2024-06-07 20:42] LABS: Troponin I 0.028 ng/mL (< 0.028)
[2024-06-07 22:10] LABS: Bacteria/HPF None Seen HPF (None Seen); Bilirubin Negative (Negative); Blood, Urine Negative (Negative); CAUTI Indications for Culture Fever or rigors; Clarity Turbid (Clear); Glucose, Urine (Dipstick) Normal (Negative); Ketone, Urine Negative (Negative); Leukocyte Negative Leu/uL (Negative); Nitrite Negative (Negative); Protein, Urine (Dipstick) 30 mg/dL (Neg-Trace); RBC/HPF 0-3 HPF (0-3); Specific Gravity, Urine 1.016 (1.002-1.036); Squamous Epithelial None Seen HPF (0-3); Urobilinogen Normal mg/dL (Less than 2); WBC/HPF 0-3 HPF (0-3)
[2024-06-07 22:18] LABS: Urine Culture Reflex No No
== END 2024-06-07 23:45 | disposition home or self-care (01) ==
LOC: ERS 19:51
DX: R53.1 Weakness (principal); Z86.73 Personal history of transient ischemic attack (TIA), and cerebral infarction without residual deficits
CPT/HCPCS: 70450; 71045; 80053; 81001; 83605; 84145; 84484; 85025; 87040; 87086; 87428; 93005

== ENCOUNTER 2025-03-30 15:04 | Outpatient (CLI) | payer MEDICARE | END 2025-03-30 15:05 | disposition home or self-care (01) | LOC: BICRAD 15:04 | PROVIDERS: ATTEND Internal Medicine Rheumatology | DX: M47.812 Spondylosis without myelopathy or radiculopathy, cervical region (principal); M47.817 Spondylosis without myelopathy or radiculopathy, lumbosacral region; M47.816 Spondylosis without myelopathy or radiculopathy, lumbar region | CPT/HCPCS: 72052; 72100 ==